=== PATIENT | female | born 1955 | race Caucasian/White ===

== ENCOUNTER 2017-10-19 08:22 | Inpatient (IN) | payer OTHER ==
[2017-10-19] MEDS: NITROGLYCERIN 2% 1 GM OINT PKT TD (10:18)
[2017-10-19] MEDS: NITROGLYCERIN (SL) 0.4 MG TAB SL (10:18)
[2017-10-19] MEDS: ASPIRIN 81 MG TAB PO (10:18)
[2017-10-19 10:31] LABS: ADD MAN DIFF? NO
[2017-10-19 10:38] LABS: BASOPHIL # 0.1 10^3/ul (0.0-0.1); BASOPHILS % 0.9 % (0.0-2.0); EOSINOPHILS # 0.1 10^3/ul (0.0-0.5); EOSINOPHILS % 1.5 % (0.0-7.0); HEMATOCRIT 42.1 % (37.0-47.0); HEMOGLOBIN 14.4 g/dl (12.0-16.0); LYMPHOCYTES % 27.2 % (15.0-51.0); MEAN CORPUSCULAR HEMOGLOBIN 29.8 pg (29.0-33.0); MEAN CORPUSCULAR HGB CONC 34.2 g/dl (32.0-37.0); MEAN CORPUSCULAR VOLUME 87.2 fl (82.0-101.0); MONOCYTE # 0.5 10^3/ul (0.3-0.9); MONOCYTES % 6.3 % (0.0-11.0); NEUTROPHIL # 4.7 10^3/ul (1.6-7.5); NEUTROPHILS % 63.7 % (39.0-77.0); PLATELET COUNT 247 10^3/UL (140-415); RED BLOOD COUNT 4.83 10^6/ul (4.20-5.40); RED CELL DISTRIBUTION WIDTH 12.6 % (11.5-14.5)
[2017-10-19 10:38] LABS: WHITE BLOOD COUNT 7.4 10^3/ul (4.8-10.8)
[2017-10-19 11:00] LABS: ANION GAP 16 (8-16); BLOOD UREA NITROGEN 13 mg/dl (7-20); CARBON DIOXIDE 28 mmol/L (21-31); CHLORIDE 103 mmol/L (97-110); GLUCOSE 184 mg/dl (70-220); POTASSIUM 4.2 mmol/L (3.5-5.1); SODIUM 143 mmol/L (135-144)
[2017-10-19 11:10] LABS: TROPONIN-I 0.017 ng/ml (0.00-0.12)
[2017-10-19] MEDS ORDERED: ACETAMINOPHEN 325 MG TAB PO (12:30)
[2017-10-19] MEDS ORDERED: ONDANSETRON 4 MG INJ IV (12:30)
[2017-10-19 17:36] LABS: ALANINE AMINOTRANSFERASE 31 IU/L (13-69); ALBUMIN 4.5 g/dl (3.3-4.9); ALKALINE PHOSPHATASE 87 IU/L (42-121); ASPARTATE AMINO TRANSFERASE 26 IU/L (15-46); BILIRUBIN,INDIRECT 0.3 mg/dl (0-1.1); BILIRUBIN,TOTAL 0.3 mg/dl (0.2-1.3); MAGNESIUM 1.7 mg/dl (1.7-2.5); TOTAL PROTEIN 7.7 g/dl (6.1-8.1)
[2017-10-19 17:46] LABS: PHOSPHORUS 3.4 mg/dl (2.5-4.9)
[2017-10-19] MEDS: LOSARTAN 25 MG TAB PO (17:52)
[2017-10-19] MEDS: AMLODIPINE 5 MG TAB PO (17:52)
[2017-10-19] MEDS: metFORMIN 500 MG TAB PO (19:30)
[2017-10-19 19:39] LABS: CREATINE KINASE 23 IU/L (23-200)
[2017-10-19 19:51] LABS: CK INDEX 1.6; CK-MB 0.37 ng/ml (0.0-2.4); TROPONIN-I < 0.012 ng/ml (0.00-0.12)
[2017-10-19] MEDS: ATORVASTATIN 10 MG TAB PO (20:54)
[2017-10-20 01:23] LABS: CREATINE KINASE 22 IU/L (23-200)
[2017-10-20 01:35] LABS: CK INDEX 1.4
[2017-10-20 01:37] LABS: TROPONIN-I < 0.012 ng/ml (0.00-0.12)
[2017-10-20 05:07] LABS: ADD MAN DIFF? NO
[2017-10-20 05:08] LABS: BASOPHIL # 0.1 10^3/ul (0.0-0.1); BASOPHILS % 0.7 % (0.0-2.0); EOSINOPHILS # 0.2 10^3/ul (0.0-0.5); EOSINOPHILS % 2.3 % (0.0-7.0); HEMOGLOBIN 13.6 g/dl (12.0-16.0); LYMPHOCYTES % 24.2 % (15.0-51.0); MEAN CORPUSCULAR HGB CONC 33.2 g/dl (32.0-37.0); MEAN CORPUSCULAR VOLUME 87.4 fl (82.0-101.0); MEAN PLATELET VOLUME 9.9 fl (7.4-10.4); MONOCYTE # 0.7 10^3/ul (0.3-0.9); MONOCYTES % 7.9 % (0.0-11.0); NEUTROPHIL # 5.3 10^3/ul (1.6-7.5); NEUTROPHILS % 64.5 % (39.0-77.0); PLATELET COUNT 245 10^3/UL (140-415); RED BLOOD COUNT 4.69 10^6/ul (4.20-5.40); RED CELL DISTRIBUTION WIDTH 12.6 % (11.5-14.5)
[2017-10-20 05:08] LABS: WHITE BLOOD COUNT 8.2 10^3/ul (4.8-10.8)
[2017-10-20 05:40] LABS: ANION GAP 15 (8-16); BLOOD UREA NITROGEN 13 mg/dl (7-20); CALCIUM 9.7 mg/dl (8.4-10.2); CARBON DIOXIDE 27 mmol/L (21-31); CHLORIDE 102 mmol/L (97-110); CHOL/HDL RATIO 3.8 RATIO; CHOLESTEROL 150 mg/dl (100-200); CREATININE 0.58 mg/dl (0.44-1.00); GLUCOSE 188 mg/dl (70-220); HDL CHOLESTEROL 39 mg/dl (35-98); LDL CHOLESTEROL,CALCULATED 89 mg/dl; POTASSIUM 4.3 mmol/L (3.5-5.1); SODIUM 140 mmol/L (135-144); TRIGLYCERIDES 112 mg/dl (0-149)
[2017-10-20] MEDS ORDERED: NACL 0.9% 3 ML SYG IV (10:00)
[2017-10-20] MEDS: LEVOTHYROXINE 25 MCG TAB PO (11:12)
[2017-10-20] MEDS: metFORMIN 500 MG TAB PO (11:13)
[2017-10-20] MEDS: AMLODIPINE 5 MG TAB PO (11:15)
[2017-10-20] MEDS: LOSARTAN 25 MG TAB PO (11:15)
[2017-10-20] MEDS: ASPIRIN 81 MG TAB PO (11:18)
[2017-10-20] MEDS ORDERED: ASPIRIN (EC) 81 MG TAB PO (11:18)
[2017-10-20] MEDS ORDERED: INSULIN ASPART [NOVOLOG] 3 ML PEN SC ×2 (13:00→17:05)
[2017-10-20] MEDS ORDERED: GLUCOSE GEL 15 GRAM TUBE PO ×2 (13:30)
[2017-10-20] MEDS ORDERED: GLUCOSE GEL 15 GRAM TUBE BUCCAL (13:30)
[2017-10-20] MEDS ORDERED: GLUCAGON 1 MG INJ IM (13:30)
[2017-10-20] MEDS ORDERED: DEXTROSE 50% 50 ML SYRINGE IV ×2 (13:30)
[2017-10-20] MEDS: INSULIN GLARGINE [LANtus] 3 ML PEN SC (15:45)
[2017-10-20] MEDS: DIAZEPAM 5 MG TAB PO (16:08)
[2017-10-20] MEDS: DIPHENHYDRAMINE 50 MG CAP PO (16:08)
[2017-10-20] MEDS ORDERED: VERAPAMIL 5 MG INJ (16:52)
[2017-10-20] MEDS ORDERED: NITROGLYCERIN (IC) 100 MCG/ML INJ (16:52)
[2017-10-20] MEDS ORDERED: MIDAZOLAM 1 MG/ML 2 ML INJ (16:52)
[2017-10-20] MEDS ORDERED: FENTAnyl 50 MCG/ML VIAL (16:52)
[2017-10-20] MEDS ORDERED: IODIXANOL LOCM 100 ML BTL (16:52)
[2017-10-20] MEDS ORDERED: LIDOCAINE 1% (MDV) 20 ML INJ (16:52)
[2017-10-20] MEDS ORDERED: HEPARIN 1000 UNITS/ML 10 ML INJ (16:52)
[2017-10-20] MEDS ORDERED: IODIXANOL LOCM 50 ML BTL (17:11)
[2017-10-20] MEDS ORDERED: TICAGRELOR 90 MG TABLET (17:29)
[2017-10-20] MEDS: INSULIN ASPART [NOVOLOG] 3 ML PEN SC (17:35)
[2017-10-20] MEDS: NITROGLYCERIN (SL) 0.4 MG TAB SL ×2 (19:09→19:16)
[2017-10-20] MEDS: SOD CHLORIDE 0.9% 1,000 ML IV ×2 (19:15→19:40)
[2017-10-20] MEDS: ATORVASTATIN 10 MG TAB PO (23:21)
[2017-10-20] MEDS: TICAGRELOR 90 MG TABLET PO (23:21)
[2017-10-21] MEDS: INSULIN ASPART [NOVOLOG] 3 ML PEN SC ×3 (00:49→12:41)
[2017-10-21] MEDS: ACCU-CHEK XX (02:00)
[2017-10-21 05:51] LABS: ADD MAN DIFF? NO
[2017-10-21 05:59] LABS: WHITE BLOOD COUNT 8.1 10^3/ul (4.8-10.8)
[2017-10-21 05:59] LABS: BASOPHIL # 0.1 10^3/ul (0.0-0.1); BASOPHILS % 0.6 % (0.0-2.0); EOSINOPHILS # 0.1 10^3/ul (0.0-0.5); EOSINOPHILS % 1.2 % (0.0-7.0); HEMATOCRIT 37.8 % (37.0-47.0); HEMOGLOBIN 12.9 g/dl (12.0-16.0); LYMPHOCYTES # 1.6 10^3/ul (0.8-2.9); LYMPHOCYTES % 19.4 % (15.0-51.0); MEAN CORPUSCULAR HEMOGLOBIN 29.7 pg (29.0-33.0); MEAN CORPUSCULAR HGB CONC 34.1 g/dl (32.0-37.0); MEAN CORPUSCULAR VOLUME 86.9 fl (82.0-101.0); MEAN PLATELET VOLUME 9.6 fl (7.4-10.4); MONOCYTE # 0.7 10^3/ul (0.3-0.9); NEUTROPHIL # 5.7 10^3/ul (1.6-7.5); NEUTROPHILS % 70.6 % (39.0-77.0); PLATELET COUNT 222 10^3/UL (140-415); RED BLOOD COUNT 4.35 10^6/ul (4.20-5.40); RED CELL DISTRIBUTION WIDTH 12.2 % (11.5-14.5)
[2017-10-21 06:23] LABS: ANION GAP 14 (8-16); BLOOD UREA NITROGEN 10 mg/dl (7-20); CALCIUM 9.3 mg/dl (8.4-10.2); CARBON DIOXIDE 25 mmol/L (21-31); CHLORIDE 107 mmol/L (97-110); CREATININE 0.52 mg/dl (0.44-1.00); GLUCOSE 123 mg/dl (70-220); POTASSIUM 3.7 mmol/L (3.5-5.1); SODIUM 142 mmol/L (135-144)
[2017-10-21] MEDS: LEVOTHYROXINE 25 MCG TAB PO (08:58)
[2017-10-21] MEDS: TICAGRELOR 90 MG TABLET PO (08:59)
[2017-10-21] MEDS: ASPIRIN (EC) 81 MG TAB PO (11:30)
[2017-10-21] MEDS: AMLODIPINE 5 MG TAB PO (11:30)
[2017-10-21] MEDS: LOSARTAN 25 MG TAB PO (11:38)
[2017-10-21] MEDS ORDERED: ATORVASTATIN 40 MG TAB PO (21:00)
[2017-10-22] MEDS ORDERED: INFLUENZA VIRUS VACCINE 0.5 ML (DISPENSING) IM* (09:00)
== END 2017-10-21 15:23 | disposition home or self-care (01) | DRG 247 ==
LOC: REC 10-21 08:28 → MS4 10-21 09:30 → E/R 08:22 → MS3 12:05 → ICU 10-20 19:33
PROC: 027034Z Dilation of Coronary Artery, One Artery with Drug-eluting Intraluminal Device, Percutaneous Approach (ICD-10-PCS; principal; 2017-10-20 16:30)
DX: I25.110 Atherosclerotic heart disease of native coronary artery with unstable angina pectoris (principal); I10 Essential (primary) hypertension; E03.9 Hypothyroidism, unspecified; E78.5 Hyperlipidemia, unspecified; E11.9 Type 2 diabetes mellitus without complications
CPT/HCPCS: 36415; 71045; 80048; 80061; 80076; 82550; 82553; 82962; 83735; 84100; 84484; 85025; 93005; 93350; 99285-25